=== PATIENT | male | born 1960 | race Caucasian/White ===

== ENCOUNTER 2022-05-20 08:37 | Outpatient (CLI) | payer BC, SELFPAY | END 2022-05-20 08:38 | disposition home or self-care (01) | LOC: INJ CL 08:39 | PROVIDERS: PCP Physician Assistant Medical; Visit Provider Family Medicine | DX: M54.16 Radiculopathy, lumbar region (principal); M51.26 Other intervertebral disc displacement, lumbar region | CPT/HCPCS: 62323; J0702; Q9966 ==

== ENCOUNTER 2022-06-23 13:45 | Outpatient (RCR) | payer BC, SELFPAY | END 2022-08-29 08:37 | disposition home or self-care (01) | PROVIDERS: PCP Physician Assistant Medical; Visit Provider Physician Assistant Medical | DX: M51.26 Other intervertebral disc displacement, lumbar region (principal); Z51.89 Encounter for other specified aftercare | CPT/HCPCS: 97012; 97110; 97140; 97162 ==

== ENCOUNTER 2024-01-05 13:17 | Outpatient (CLI) | payer OTHER, SELFPAY | END 2024-01-05 13:18 | disposition home or self-care (01) | LOC: INJ CL 13:18 | PROVIDERS: PCP Physician Assistant Medical; Visit Provider Family Medicine | DX: M54.16 Radiculopathy, lumbar region (principal); M51.26 Other intervertebral disc displacement, lumbar region | CPT/HCPCS: 64483; 64484; J1100; Q9966 ==

== ENCOUNTER 2024-05-24 09:26 | Outpatient (CLI) | payer OTHER, SELFPAY | END 2024-05-24 09:27 | disposition home or self-care (01) | LOC: INJ CL 09:29 | PROVIDERS: PCP Physician Assistant Medical; Visit Provider Family Medicine | DX: M54.16 Radiculopathy, lumbar region (principal); M51.26 Other intervertebral disc displacement, lumbar region | CPT/HCPCS: 62323; J0702; Q9966 ==